=== PATIENT | female | born 1985 | race Caucasian/White ===

== ENCOUNTER 2017-02-14 22:54 | Emergency (ER) | payer SELFPAY ==
[~2017-02-14] VITALS: Ht 162.6 cm; Wt 109.1 kg
[~2017-02-14 22:54] MED LIST: ASCO-294 PO; ASCO250T7 PO; FEXO180T85 PO; PROC25SU30 RC; RIZA10TA23 PO
[2017-02-14 23:06] VITALS: BP 137/96; PULSE 85; RESP 16; O2SAT 98
--- NOTE | 2017-02-15 00:06 | ED.REPORT ---
HPI-Abd Pain F Under 40 Date of Service Feb 15, 2017 ED Provider: Deuce Duron MD The pt is a 31 y/o female with a hx of PCOS and asthma who presents to the ED complaining of waxing and waning, stabbing suprapubic abdominal pain since yesterday. Associated sx include intermittent burning epigastric pain and nausea. In the ED, her pain has decreased significantly. She denies fever, dysuria, and pain with palpation. Her current sx are similar but worse than her last cysts. Her last hemorrhagic cyst was 6 months ago. Nursing Notes Stated Complaint: STOMACH PAIN Chief Complaint: Female Abdominal Pain Nursing Notes Reviewed: Yes Allergies: Coded Allergies: cefaclor (Verified Allergy, Unknown, 02/25/15) clarithromycin (Verified Allergy, Unknown, 02/25/15) clindamycin (Verified Allergy, Unknown, 02/25/15) hydrocodone (Verified Allergy, Unknown, 02/25/15) morphine (Verified Allergy, Unknown, 02/25/15) naproxen (Verified Allergy, Unknown, 02/25/15) penicillin (Verified Allergy, Unknown, 02/25/15) sulfamethoxazole (Verified Allergy, Unknown, 02/25/15) trimethoprim (Verified Allergy, Unknown, 02/25/15) Scheduled Ascorbic Acid (Vitamin C) 250 Mg Tab.chew 250 MG PO DAILY Fexofenadine (Dary Allergy) 180 Mg Tablet 180 MG PO DAILY Rizatriptan ODT (Maxalt [facility] [employer] [facility]) 10 Mg Tablet 10 MG PO Q2H Scheduled PRN Prochlorperazine Maleate (Compazine Suppository) 25 Mg Supp.rect 25 MG RC Q8 PRN PRN For Nausea/Vomiting Miscellaneous Medications Ascorbate Calcium (Vitamin C) 500 Mg Tablet 500 MG PO General Time Seen by MD: 00:00 Chief Complaint Abdominal pain Hx Obtained From: Patient Arrived By: Walk-in Sudden in Onset?: Yes Onset Occurred: Yesterday Symptom Duration: Waxes and wanes Progression since Onset: Waxes and wanes Location: : Suprapubic Quality: Stabbing Radiation: : Does not radiate Severity: Current: Moderate Severity: Maximum: Severe Recent Healthcare: No recent doctor visit Similar Sx Previous: Yes Past Medical History Past Medical History polycystic ovarian syndrome Arachnoid cyst Reports: Asthma, Hypertension Past Surgical History Reports: Cholecystectomy Family History Father: DM Smoking History Former Smoker, Never Smoker Social History Alcohol Use: Denies alcohol use Drug Use: Denies drug use Other Social History: Good social support Ambulatory Status Independent Review of Systems Denies: abdominal pain with palpation Constitutional: Denies: Fever GI: Reports: Abdominal pain, Nausea Female: Denies: Dysuria Complete sys rev & neg: except as marked. Physical Exam Initial Vital Signs Vital Signs (First) Date Time Temp Pulse Resp B/P Pulse Ox O2 Delivery O2 Flow Rate FiO2 02/14/17 23:06 36.9 85 16 137/96 98 Room Air Initial VS: Reviewed, Vital signs abnormal Head / Eyes: Atraumatic, Normocephalic Neck: Supple, Non-tender, Full range of motion Extremities: Vascular intact, Neuro intact, No swelling, No tenderness Skin: Warm, Dry, No cyanosis Neurologic: Alert, Oriented, Nonfocal General/Constitutional: Awake, Alert, No acute distress, Well appearing, Cooperative Respiratory / Chest: Atraumatic, Breath sounds NL, Breath sounds = bilat, No respiratory distress, No rales, No rhonchi, No wheezing Cardiovascular: Heart rate NL, Regular rhythm, Heart sounds NL, No gallop, No murmurs, No rubs Abdomen: Atraumatic, Soft, No guarding, No rebound Tenderness/Guarding/Rebound: Positive: Tender suprapubic Back: Atraumatic, Full range of motion Interpretation & Diagnostics US pelvis transabdominal Conclusion: No sonographic evidence of acute pathology. Signed by Dr. Del Anders 02/15/17 04:00 Lab Results Interpretation Result Diagram: 02/15/17 0020 02/15/17 0020 Test 02/15/17 00:09 02/15/17 00:20 Hold Urine Received (Received) White Blood Count 7.1th/mm3 (3.8-10.1) Red Blood Count 4.90mil/mm3 (3.90-5.20) Hemoglobin 10.8g/dL (12.0-15.6) Hematocrit 33.9% (35.0-46.0) Mean Corpuscular Volume 69.2fL (81-100) Mean Corpuscular Hemoglobin 22.0pg (27.0-35.0) Mean Corpuscular Hemoglobin Concent 31.9% (32.0-37.0) Red Cell Distribution Width 16.9% (12.3-15.4) Platelet Count 326bil/L (150-400) Neutrophils (%) (Auto) 59.3% (40-74) Lymphocytes (%) (Auto) 28.7% (14-46) Monocytes (%) (Auto) 6.2% (4-12) Eosinophils (%) (Auto) 5.2% (0-5) Basophils (%) (Auto) 0.6% (0-3) Hematology Comments Microcytosis Sodium Level 140mEq/L (134-144) Potassium Level 3.9mEq/L (3.5-5.2) Chloride Level 105mEq/L (97-108) Carbon Dioxide Level 23mmol/L (18-29) Blood Urea Nitrogen 10mg/dL (6-20) Creatinine 0.75mg/dL (0.57-1.00) Estimat Glomerular Filtration Rate 129mL/min (>59) Glucose Level 101mg/dL (60-99) Calcium Level 8.9mg/dL (8.5-10.1) Magnesium Level 1.9mg/dL (1.6-2.6) Total Bilirubin 0.3mg/dL (0.0-1.2) Aspartate Amino Transf (AST/SGOT) 17U/L (0-50) Alanine Aminotransferase (ALT/SGPT) 20U/L (0-32) Alkaline Phosphatase 76U/L (25-150) Total Protein 6.8g/dL (6.4-8.4) Albumin 3.9g/dL (3.4-5.0) Lipase 45U/L (13-60) Hold Burton Top Tube Received (Received) Lab Results Interpretation: Negative urine test Negative urine test Re-Eval/Medical Decision Med Decision/Clinical Course 31-year-old female with a history of PCOS presents with pelvic pain. Urine is normal. There is no evidence of ovarian pathology or any significant cysts. There is no free fluid. There does not appear to be at this time is serious cause of discomfort. She got considerable improvement with ibuprofen. She will continue to use that and follow-up with her regular provider. Source of Hx: Old records Re-Evaluation/Progress : Time of Eval: 03:46 Patient Status: Mild relief Re-Evaluation/Progress Note: Rechecked pt. Her abdomen is soft and virtually non-tender. Discussed lab results, imaging results, diagnosis and plan to discharge. Pt understands and agrees with the plan. F/U instruction and RTER warning given. All questions addressed. Counseled Regarding: Diagnosis, Lab results, Need for follow-up, When/why to return to ED Discharge & Departure Primary Impression: Pelvic pain Disposition: Home Discharge Condition All VS Reviewed: Yes Condition: Stable Patient Instructions: Acute Abdominal Pain (ED) Additional Instructions: The cause of your pain is not certain, but does not appear to be serious. The ultrasound is normal. The blood flow to your ovaries is good and there are no predominant cysts or evidence of bleeding. You are anemic with evidence of iron deficiency, so you do need to take your iron. Call me at [phone] between the hours of 9 PM and 6 AM for the next couple nights if you have any questions or concerns. Return here if your pain localizes to the right lower abdomen or you start to run fevers. Referrals: Daniel Cervantes Attestation Portions of this note were transcribed by Alicia Jimenez. I,, personally performed the history,physical exam and medical decision-making;I reviewed and confirmed the accuracy of the information in the transcribed note. Signed by Tiera Martinez. 02/15/17 Deuce Duron MD Feb 15, 2017 00:06 Alicia Jimenez Feb 15, 2017 00:14
[2017-02-15 00:27] VITALS: BP 148/94; PULSE 92; O2SAT 96
[2017-02-15 00:28] LABS: BASOPHILS % (AUTO) 0.6 % (0-3); EOSINOPHILS % (AUTO) 5.2 % (0-5); MONOCYTES % (AUTO) 6.2 % (4-12); Mean Corpuscular Volume 69.2 fL (81-100); NEUTROPHILS % (AUTO) 59.3 % (40-74); Platelet Count 326 bil/L (150-400)
[2017-02-15 01:03] LABS: Magnesium 1.9 mg/dL (1.6-2.6)
[2017-02-15 04:22] VITALS: BP 140/89; PULSE 90; RESP 16; O2SAT 98
--- NOTE | 2017-02-15 08:17 | DRSVH ---
PROCEDURE: US PELVIC SONOGRAM + TRANSVAGINAL SONOGRAM INDICATIONS: pelvic pain TECHNIQUE: Real-time scanning was performed of the pelvic organs, with image documentation. Additional endovagi nal scanning was necessary due to incomplete visualization of the adnexal and endometrial structures by transabdominal scanning. COMPARISON: None. FINDINGS: (orthogonal measurements) Uterus size: 8.14 cm, 4.56 cm, 5.38 cm Endometrium thickness: 1.02 cm Right ovary size: 3.00 cm, 3.24 cm, 2.56 cm Left ovary size: 3.00 cm, 3.15 cm, 1.78 cm Transabdominal scanning: Limited scanning through the kidneys shows no hydronephrosis. No pathologi c free abdominal or pelvic fluid. Endovaginal scanning: Uterus: Uterus is normal in size and appearance. Endometrium is within normal physiologic limits. Ovaries: Within normal physiologic limits. Small follicles are noted in the adnexa bilaterally. IMPRESSION: No acute disease process identified. Dictated by: Clare Mccormick MD, PhD on 02/15/2017 at 8:14 Approved by: Clare Mccormick MD, PhD on 02/15/2017 at 8:15
== END 2017-02-15 04:23 | disposition home or self-care (01) ==
LOC: SED 22:54
DX: R10.2 Pelvic and perineal pain (principal); J45.909 Unspecified asthma, uncomplicated; I10 Essential (primary) hypertension; Z88.8 Allergy status to other drugs, medicaments and biological substances; Z88.1 Allergy status to other antibiotic agents; Z88.5 Allergy status to narcotic agent; Z88.0 Allergy status to penicillin; Z88.2 Allergy status to sulfonamides